=== PATIENT | male | born 1955 | race Two or more races ===

== ENCOUNTER 2021-03-05 09:57 | Inpatient (IN) | payer SELFPAY ==
[~2021-03-05] VITALS: Ht 165.1 cm; Wt 71.0 kg
[2021-03-05] MEDS ORDERED: DEXAMETHASONE SOD PHOS 20 MG/5 ML VIAL. IV ONE (10:45)
[2021-03-05] MEDS ORDERED: ALBUTEROL SULFATE 2.5 MG/3 ML NEBU. NEB ONE ×2 (10:45→13:45)
--- NOTE | 2021-03-05 10:54 | PHYS DOC ---
Past Medical History Past Surgical History: Other Additional Past Surgical Histo: heart General Adult EDM: Chief Complaint: OTHER COMPLAINTS HPI: HPI: Patient is a 66 year old male who presents with was outside burning some garbage about 3 weeks ago and feeling very short of air with some chest pain. 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 Unsure if medications he takes. He does take insulin for his diabetes. States he does not think that he takes a blood thinner. Son is in the room interpreting for the father but he is also not a good historian. He is not vaccinated for Covid. Patient states he does take medication every day but is unsure what it is for. He states he did have a heart surgery in the past. Rates his discomfort 7 out of 10. Denies fever, headache, cough, dizziness, syncope, abdominal pain, nausea, vomiting, diarrhea, vision change, focal weakness, numbness or tingling. Review of Systems: Review of Systems: Constitutional: Denies fever or chills. [] Eyes: Denies change in visual acuity. [] HENT: Denies nasal congestion or sore throat. [] Respiratory: Denies cough or +shortness of breath. [] Cardiovascular: +chest pain or denies edema. [] GI: Denies abdominal pain, nausea, vomiting, bloody stools or diarrhea. [] : Denies dysuria. [] Musculoskeletal: Denies back pain or joint pain. [] Integument: Denies rash. [] Neurologic: Denies headache, focal weakness or sensory changes. [] Endocrine: Denies polyuria or polydipsia. [] Lymphatic: Denies swollen glands. [] Psychiatric: Denies depression or anxiety. [] Heart Score: C/O Chest Pain: Yes HEART Score for Chest Pain: HEART Score for Chest Pain Response (Comments) Value History Slighlty/Non-Suspicious 0 ECG Nonspecific Repolarizatio 1 Age >45 - < 65 1 Risk Factors >3 Risk Factors or Hx CAD 2 Troponin < Normal Limit 0 Total 4 Risk Factors: Risk Factors: DM, Current or recent (<one month) smoker, HTN, HLP, family history of CAD, obesity. Risk Scores: Score 0 - 3: 2.5% MACE over next 6 weeks - Discharge Home Score 4 - 6: 20.3% MACE over next 6 weeks - Admit for Clinical Observation Score 7 - 10: 72.7% MACE over next 6 weeks - Early Invasive Strategies Current Medications: Current Medications Medications (Trade) Dose Ordered Sig/Laura Start Time Stop Time Status Last Admin Dose Admin Albuterol Sulfate (Ventolin Neb Soln) 2.5 mg 1X ONCE 03/05/21 10:45 03/05/21 10:46 Dexamethasone Sodium Phosphate (Decadron) 10 mg 1X ONCE 03/05/21 10:45 03/05/21 10:46 Allergies: Allergies: Allergies Coded Allergies Type Severity Reaction Last Updated Verified No Known Drug Allergies 03/05/21 No Physical Exam: PE: Constitutional: Well developed, well nourished, no acute distress, non-toxic appearance. [] HENT: Normocephalic, atraumatic, bilateral external ears normal, oropharynx moist, no oral exudates, nose normal. [] Eyes: PERRLA, EOMI, conjunctiva normal, no discharge. [] Neck: Normal range of motion, no tenderness, supple, no stridor. [] Cardiovascular:Heart rate regular rhythm, no murmur [] Lungs & Thorax: Bilateral upper breath sounds clear and lower diminished to auscultation [] Abdomen: Bowel sounds normal, soft, no tenderness, no masses, no pulsatile masses. [] Skin: Warm, dry, no erythema, no rash. [] Back: No tenderness, no CVA tenderness. [] Extremities: No tenderness, no cyanosis, no clubbing, ROM intact, no edema. [] Neurologic: Alert and oriented X 3, normal motor function, normal sensory function, no focal deficits noted. [] Psychologic: Affect normal, judgement normal, mood normal. [] Current Patient Data: Vital Signs: Vital Signs Date Time Temp Pulse Resp B/P (MAP) Pulse Ox O2 Delivery O2 Flow Rate FiO2 03/05/21 10:10 97.6 88 20 114/71 98 Room Air 97.6 EKG: EK and read by Dr. Haque sinus rhythm with ventricular premature complexes and no STEMI Radiology/Procedures: Radiology/Procedures: [] Impression: [facility] [address] [place] [address] IMAGING REPORT Signed PATIENT: MARIAN LEDESMAIAGO ACCOUNT: [id number] : 1955 LOCATION: ER AGE: 66 SEX: M EXAM STATUS: PRE ER ORD. PHYSICIAN: MINDY LUIS APRN REASON: CHEST PAIN, SOA PROCEDURE: PORTABLE CHEST 1V EXAM: Chest, single view. HISTORY: Pain. Shortness of breath. COMPARISON: None. FINDINGS: A frontal view of the chest obtained. There is diffuse interstitial infiltrate. There are small pleural effusions. There is cardia megaly. There is evidence of prior median sternotomy and coronary artery bypass grafting. There is no pneumothorax IMPRESSION: 1. Diffuse interstitial infiltrate and small pleural effusions. 2. Cardiomegaly. Electronically signed by: Gemma Wright MD (03/05/2021 11:06 AM) [id number] DICTATED and SIGNED BY: GEMMA WRIGHT MD DATE: 03/05/21 [id number] [facility] [address] [place], [place] [id number] IMAGING REPORT Signed PATIENT: DUANE LEDESMA ACCOUNT: [id number] : 1955 LOCATION: ER AGE: 66 SEX: M EXAM STATUS: PRE ER ORD. PHYSICIAN: MINDY LUIS APRN REASON: abd pain, nausea, vomiting PROCEDURE: CT ABD PELV W/ IV CONTRST ONLY CT STUDY OF THE ABDOMEN AND PELVIS WITH CONTRAST Clinical indications: Abdominal pain. Nausea and vomiting. TECHNIQUE: After IV infusion of 75 cc of Omnipaque 300, helical CT scanning of the abdomen and pelvis was performed. GI contrast was not administered. This may decrease the sensitivity to detect GI tract pathology. PQRS COMPLIANCE STATEMENT One or more of the following individualized dose reduction techniques were utilized for this study: 1. Automated exposure control 2. Adjustment of the mA and/or kV according to patient size 3. Use of iterative reconstruction technique COMPARISON: None available. FINDINGS: The liver and spleen and pancreas are normal. Multiple radiopaque gallstones are seen within the gallbladder. No extra hepatic biliary ductal dilatation is seen. No adrenal mass is seen. Both kidneys are normal without hydronephrosis or hydroureter. No urinary tract stone is evident. Urinary bladder wall is smooth. There is mild enlargement of the prostate gland which indents the floor of the urinary bladder. Prostate gland measures 6 cm transversely. No focal aneurysmal dilatation of the abdominal aorta is seen. C alcified plaque of the abdominal aorta and the origin of the celiac artery and origin/proximal aspect of the superior mesenteric artery and the origin/proximal aspect of both main renal arteries is seen. At least a 50 percent stenosis of the left main renal artery is seen. Inferior mesenteric artery is visualized and enhances. No enlarged abdominal or pelvic lymphadenopathy is apparent. The terminal ileum and appendix are normal. No obstructive bowel pattern is evident. No bowel wall thickening is seen. No free air or free fluid or mesenteric edema is evident. Moderate-sized bilateral pleural effusions are seen with associated compressive atelectasis of both posterior lower lobes. Cardiomegaly is evident. IMPRESSION: No acute abnormality of the abdomen or pelvis. Moderate-sized bilateral pleural effusions and cardiomegaly. 50 percent stenosis of the left main renal artery. Enlargement of the prostate gland. Cholelithiasis. Electronically signed by: Bisi Swift MD (03/05/2021 12:19 PM) [id number] DICTATED and SIGNED BY: BISI SWIFT MD DATE: 03/05/21 [id number] 0 Course & Med Decision Making: Course & Med Decision Making Pertinent Labs and Imaging studies reviewed. (See chart for details) COVID-19 CRITERIA: The patient was evaluated during the global COVID-19 pandemic, and that diagnosis was suspected/considered upon their initial presentation. Their evaluation, treatment and testing was consistent with current guidelines for patients who present with complaints or symptoms that may be related to COVID-19. See HPI. Alert and oriented x4. Ambulatory steady gait. Speaks in full clear sentences. Skin pink warm and dry. Lungs are clear in upper lobes and dimi nished in lower lobes. Skin pink warm and dry. Chest x-ray shows pneumonia and moderate pleural effusions. Patient states the breathing treatment did help. He was also given dexamethasone. Patient is still wheezing and his respiratory rate is around 22-24. Vital signs remained stable. Rapid Covid is negative. Patient is admitted to Dr Ibarra. [] Tatyana Disclaimer: Tatyana Disclaimer: This electronic medical record was generated, in whole or in part, using a voice recognition dictation system. COVID-19 Patient Risks: Age 65 or older: No Sign of co-morbidity: Yes Exp to person + for COVID: No Exp to PUI: No Travel from affected area: No Lower respiratory symptoms: Yes Fever: No Other: Yes (chest pain) PPE Use: Full PPE with N95 mask or PAPR: Yes Departure Departure Impression: Primary Impression: Cholelithiasis Qualified Codes: K80.20 - Calculus of gallbladder without cholecystitis without obstruction Additional Impressions: Pleural effusion Chest pain Qualified Codes: R07.9 - Chest pain, unspecified Disposition: ADMITTED INPATIENT Admitting Physician: ANGELIA Condition: STABLE [facility] ANA[facility]ST Mar 05, 2021 10:54
[2021-03-05] MEDS ORDERED: ASPIRIN 325 MG TABLET PO ONE (11:00)
--- NOTE | 2021-03-05 11:09 | RAD ---
EXAM: Chest, single view. HISTORY: Pain. Shortness of breath. COMPARISON: None. FINDINGS: A frontal view of the chest obtained. There is diffuse interstitial infiltrate. There are s mall pleural effusions. There is cardia megaly. There is evidence of prior median sternotomy and lani nary artery bypass grafting. There is no pneumothorax IMPRESSION: 1. Diffuse interstitial infiltrate and small pleural effusions. 2. Cardiomegaly. Electronically signed by: Gemma Sanchez MD (03/05/2021 11:06 AM) [id number]
[2021-03-05 11:21] LABS: BASO # 0.1 x10^3/uL (0.0-0.2); BASO % 1 % (0-3); EOS # 0.3 x10^3/uL (0.0-0.7); EOS % 4 % (0-3); HEMOGLOBIN 14.6 g/dL (13.0-17.5); LYMPH # 1.8 x10^3/uL (1.0-4.8); LYMPH % 23 % (24-48); MEAN CORPUSCULAR HEMOGLOBIN 30 pg (25-35); MEAN CORPUSCULAR HGB CONC 33 g/dL (31-37); MEAN CORPUSCULAR VOLUME 90 fL (79-100); MONO # 0.6 x10^3/uL (0.0-1.1); MONO % 8 % (0-9); NEUT # 4.9 x10^3/uL (1.8-7.7); NEUT % 64 % (31-73); PLATELET COUNT 229 x10^3/uL (140-400); RED BLOOD COUNT 4.87 x10^6/uL (4.30-5.70); RED CELL DISTRIBUTION WIDTH 16.6 % (11.5-14.5); WHITE BLOOD COUNT 7.6 x10^3/uL (4.0-11.0)
[2021-03-05 11:30] LABS: CALCIUM 9.2 mg/dL (8.5-10.1); CREATININE 1.1 mg/dL (0.7-1.3); GFR 67.4; POTASSIUM 4.7 mmol/L (3.5-5.1)
[2021-03-05 11:37] LABS: ALBUMIN 3.7 g/dL (3.4-5.0); ALBUMIN/GLOBULIN RATIO 0.9 (1.0-1.7); TOTAL BILIRUBIN 0.6 mg/dL (0.2-1.0); TOTAL PROTEIN 7.6 g/dL (6.4-8.2)
[2021-03-05] MEDS ORDERED: IOHEXOL 300 MG/ML 100ML VIAL. IV ONE (12:00)
[2021-03-05] MEDS ORDERED: IV NORMAL SALINE 500ML BAG 500 ML IV ONE (12:00)
[2021-03-05] MEDS ORDERED: PIPERACILLIN/TAZOBACTAM 3.375 GM in IV NORMAL SALINE 50ML 50 ML IV ONE (12:00)
[2021-03-05] MEDS ORDERED: CONTRAST GIVEN. MC PRN (12:00)
--- NOTE | 2021-03-05 12:22 | RAD ---
CT STUDY OF THE ABDOMEN AND PELVIS WITH CONTRAST Clinical indications: Abdominal pain. Nausea and vomiting. TECHNIQUE: After IV infusion of 75 cc of Omnipaque 300, helical CT scanning of the abdomen and pelvis was performed. GI contrast was not administered. This may decrease the sensitivity to detect GI trac t pathology. PQRS COMPLIANCE STATEMENT One or more of the following individualized dose reduction techniques were utilized for this study: 1. Automated exposure control 2. Adjustment of the mA and/or kV according to patient size 3. Use of iterative reconstruction technique COMPARISON: None available. FINDINGS: The liver and spleen and pancreas are normal. Multiple radiopaque gallstones are seen withi n the gallbladder. No extra hepatic biliary ductal dilatation is seen. No adrenal mass is seen. Both kidneys are normal without hydronephrosis or hydroureter. No urinary tract stone is evident. Urinary bladder wall is smooth. There is mild enlargement of the prostate gland which indents the floor of th e urinary bladder. Prostate gland measures 6 cm transversely. No focal aneurysmal dilatation of the a bdominal aorta is seen. Calcified plaque of the abdominal aorta and the origin of the celiac artery a nd origin/proximal aspect of the superior mesenteric artery and the origin/proximal aspect of both ma in renal arteries is seen. At least a 50 percent stenosis of the left main renal artery is seen. Infe rior mesenteric artery is visualized and enhances. No enlarged abdominal or pelvic lymphadenopathy is apparent. The terminal ileum and appendix are normal. No obstructive bowel pattern is evident. No [place] wall thickening is seen. No free air or free fluid or mesenteric edema is evident. Moderate-sized bilateral pleural effusions are seen with associated compressive atelectasis of both posterior lower lobes. Cardiomegaly is evident. IMPRESSION: No acute abnormality of the abdomen or pelvis. Moderate-sized bilateral pleural effusions and cardiomegaly. 50 percent stenosis of the left main renal artery. Enlargement of the prostate gland. Cholelithiasis. Electronically signed by: Cameron Swift MD (03/05/2021 12:19 PM) [id number]
--- NOTE | 2021-03-05 13:15 | RAD ---
INDICATION : Reason: GALL STONES / Spl. Instructions: / History: COMPARISON: March 05, 2021 CT TECHNIQUE: Multiple ultrasound images obtained through the abdomen in grayscale and color. FINDINGS: Pancreas: Largely obscured by overlying structures Liver: Echotexture within normal limits in visualized portions of liver. Gallbladder: Gallstones are visualized. IVC: Partially distended at level of liver. Common Bile Duct: Not dilated. Right Kidney: No hydronephrosis. 6 mm cyst Partial visualization of right-sided pleural effusion IMPRESSION: * Gallstones are visualized with gallbladder wall near upper limits of normal in thickness. Electronically signed by: Bala Aleman MD (03/05/2021 1:12 PM) [id number]
--- NOTE | 2021-03-05 13:59 | PDOC1 ---
History and Physical Date of Admission Date of Admission DATE: 03/05/21 TIME: 13:56 Identification/Chief Complaint Chief Complaint soa, cough x 3 weeks now worse History of Present Illness History of Present Illness 66 year old male who presented to ER with was outside burning some garbage about 3 weeks ago and feeling very short of air with some chest pain. Patient is Korean-speaking and using sign language interpreter states he has hypertension, diabetes, [place], high cholesterol. does take insulin for his diabetes. Son is interpreting for the father but he is also not a good historian. not vaccinated for Covid. troponin neg x 2 emperic iv zosyn started in ER Past Medical History Past Medical History hypertension, [facility] diabetes, [place], high cholesterl FHX HTN Cardiovascular: CAD, HTN, [place], Hyperlipidemia Pulmonary: COPD Heme/Onc: No pertinent hx Psych: Anxiety Infectious disease: No pertinent hx Endocrine: Diabetes Family History Family History: Hypertension Social History Smoke: Quit ALCOHOL: rare Drugs: None Current Problem List Problem List Problems Medical Problems: (1) Chest pain Status: Acute (2) Cholelithiasis Status: Acute (3) Pleural effusion Status: Acute Current Medications Current Medications Current Medications Dexamethasone Sodium Phosphate (Decadron) 10 mg 1X ONCE IV Last administered on 03/05/21at 11:31; Start 03/05/21 at 10:45; Stop 03/05/21 at 10:46; Status DC Albuterol Sulfate (Ventolin Neb Soln) 2.5 mg 1X ONCE NEB Last administered on 03/05/21at 11:30; Start 03/05/21 at 10:45; Stop 03/05/21 at 10:46; Status DC Aspirin (Annetta Aspirin) 325 mg 1X ONCE PO Last administered on 03/05/21at 11:30; Start 03/05/21 at 11:00; Stop 03/05/21 at 11:01; Status DC Piperacillin Sod/ Tazobactam Sod 3.375 gm/Sodium Chloride 50 ml @ 100 mls/hr 1X ONCE IV Last administered on 03/05/21at 12:38; Start 03/05/21 at 12:00; Stop 03/05/21 at 12:29; Status DC Sodium Chloride 500 ml @ 500 mls/hr 1X ONCE IV Last administered on 03/05/21at 12:38; Start 03/05/21 at 12:00; Stop 03/05/21 at 12:59; Status DC Iohexol (Omnipaque 300 Mg/ml) 75 ml 1X ONCE IV Last administered on 03/05/21at 12:03; Start 03/05/21 at 12:00; Stop 03/05/21 at 12:01; Status DC Info (CONTRAST GIVEN -- Rx MONITORING) 1 each PRN DAILY PRN MC SEE COMMENTS; Start 03/05/21 at 12:00; Stop 03/07/21 at 11:59 Albuterol Sulfate (Ventolin Neb Soln) 2.5 mg 1X ONCE NEB ; Start 03/05/21 at 13:45; Stop 03/05/21 at 13:46; Status DC Allergies Allergies: Coded Allergies: No Known Drug Allergies (Unverified , 03/05/21) ROS Review of System 14 pt ros otherwise neg General: YES: Fatigue PSYCHOLOGICAL ROS: No: Anxiety, Behavioral Disorder, Concentration difficultie, Decreased libido, Depression, Disorientation, Hallucinations, Hostility, Irritablity, Memory difficulties, Mood Swings, Obsessive thoughts, Physical abuse, Sexual abuse, Sleep disturbances, Suicidal ideation, Other Eyes: No Blurry vision, No Decreased vision, No Double vision, No Dry eyes, No Excessive tearing, No Eye Pain, No Itchy Eyes, No Loss of vision, No Photophobia, No Scotomata, No Uses contacts, No Uses glasses, No Other HEENT: No: Heacaches, Visual Changes, Hearing change, Nasal congestion, Nasal discharge, Oral lesions, Sinus pain, Sore Throat, Epistaxis, Sneezing, Snoring, Tinnitus, Vertigo, Vocal changes, Other ALLERGY AND IMMUNOLOGY: No: Hives, Insect Bite Sensitivity, Itchy/Watery Eyes, Nasal Congestion, Post Nasal Drip, Seasonal Allergies, Other Hematological and Lymphatic: No: Bleeding Problems, Blood Clots, Blood Transfusions, Brusing, Night Sweats, Pallor, Swollen Lymph Nodes, Other ENDOCRINE: No: Breast Changes, Galactorrhea, Hair Pattern Changes, Hot Flashes, Malaise/lethargy, Mood Swings, Palpitations, Polydipsia/polyuria, Skin Changes, Temperature Intolerance, Unexpected Weight Changes, Other Breast: No New/Changing Breast Lumps, No Nipple changes, No Nipple discharge, No Other Respiratory: YES: Cough, Shortness of breath, SOB with excertion, Wheezing Cardiovascular: No Chest Pain, No Palpitations, No Orthopnea, No Paroxysmal Noc. Dyspnea, No Edema, No Lt Headedness, No Other Gastrointestinal: No Nausea, No Vomiting, No Abdominal Pain, No Diarrhea, No Constipation, No Melena, No Hematochezia, No Other Genitourinary: No Dysuria, No Frequency, No Incontinence, No Hematuria, No Retention, No Discharge, No Urgency, No Pain, No Flank Pain, No Other, No , No , No , No , No , No , No Musculoskeletal: No Gait Disturbance, No Joint Pain, No Joint Stiffness, No Joint Swelling, No Muscle Pain, No Muscular Weakness, No Pain In:, No Swelling In:, No Other Neurological: No Behavorial Changes, No Bowel/Bladder ControlChng, No Confusion, No Dizziness, No Gait Disturbance, No Headaches, No Impaired Coord/balance, No Memory Loss, No Numbness/Tingling, No Seizures, No Speech Problems, No Tremors, No Visual Changes, No Weakness, No Other Skin: No Dry Skin, No Eczema, No Hair Changes, No Lumps, No Mole Changes, No Mottling, No Nail Changes, No Pruritus, No Rash, No Skin Lesion Changes, No Other, No Acne Physical Exam Physical Exam Constitutional: Well developed, well nourished, no acute distress, non-toxic appearance. [] HENT: Normocephalic, atraumatic, bilateral external ears normal, oropharynx moist, no oral exudates, nose normal. [] Eyes: PERRLA, EOMI, conjunctiva normal, no discharge. [] Neck: Normal range of motion, no tenderness, supple, no stridor. [] Cardiovascular:Heart rate regular rhythm, no murmur [] Lungs & Thorax: Bilateral upper breath sounds clear and lower diminished to auscultation [] Abdomen: Bowel sounds normal, soft, no tenderness, no masses, no pulsatile masses. [] Skin: Warm, dry, no erythema, no rash. [] Back: No tenderness, no CVA tenderness. [] Extremities: No tenderness, no cyanosis, no clubbing, ROM intact, no edema. [] Neurologic: Alert and oriented X 3, normal motor function, normal sensory function, no focal deficits noted. [] Psychologic: Affect normal, judgment normal, mood normal. General: Alert, Oriented X3, Cooperative HEENT: Atraumatic, EOMI, Mucous membr. moist/pink Heart: RRR, no jug vein distention Breasts: Not examined Abdomen: Normal bowel sounds, Soft, No tenderness Rectal Exam: not examined PELVIC: Examination not indicated Extremities: No clubbing, No cyanosis Neuro: Normal speech, Cranial nerves 3-12 NL Psych/Mental Status: Mental status NL, Mood NL Vitals Vitals Vital Signs Date Time Temp Pulse Resp B/P (MAP) Pulse Ox O2 Delivery O2 Flow Rate FiO2 03/05/21 11:37 98 Room Air 03/05/21 10:10 97.6 88 20 114/71 97.6 Labs Labs Laboratory Tests Test 03/05/21 10:55 03/05/21 11:05 03/05/21 12:42 SARS-CoV-2 Antigen (Rapid) Negative (NEGATIVE) White Blood Count 7.6 x10^3/uL (4.0-11.0) Red Blood Count 4.87 x10^6/uL (4.30-5.70) Hemoglobin 14.6 g/dL (13.0-17.5) Hematocrit 44.0 % (39.0-53.0) Mean Corpuscular Volume 90 fL (79-100) Mean Corpuscular Hemoglobin 30 pg (25-35) Mean Corpuscular Hemoglobin Concent 33 g/dL (31-37) Red Cell Distribution Width 16.6 % (11.5-14.5) Platelet Count 229 x10^3/uL (140-400) Neutrophils (%) (Auto) 64 % (31-73) Lymphocytes (%) (Auto) 23 % (24-48) Monocytes (%) (Auto) 8 % (0-9) Eosinophils (%) (Auto) 4 % (0-3) Basophils (%) (Auto) 1 % (0-3) Neutrophils # (Auto) 4.9 x10^3/uL (1.8-7.7) Lymphocytes # (Auto) 1.8 x10^3/uL (1.0-4.8) Monocytes # (Auto) 0.6 x10^3/uL (0.0-1.1) Eosinophils # (Auto) 0.3 x10^3/uL (0.0-0.7) Basophils # (Auto) 0.1 x10^3/uL (0.0-0.2) Sodium Level 143 mmol/L (136-145) Potassium Level 4.7 mmol/L (3.5-5.1) Chloride Level 107 mmol/L (98-107) Carbon Dioxide Level 28 mmol/L (21-32) Anion Gap 8 (6-14) Blood Urea Nitrogen 21 mg/dL (8-26) Creatinine 1.1 mg/dL (0.7-1.3) Estimated GFR (Cockcroft-Gault) 67.4 BUN/Creatinine Ratio 19 (6-20) Glucose Level 101 mg/dL (70-99) Calcium Level 9.2 mg/dL (8.5-10.1) Magnesium Level 2.0 mg/dL (1.8-2.4) Total Bilirubin 0.6 mg/dL (0.2-1.0) Aspartate Amino Transf (AST/SGOT) 17 U/L (15-37) Alanine Aminotransferase (ALT/SGPT) 36 U/L (16-63) Alkaline Phosphatase 79 U/L (46-116) Troponin I Quantitative < 0.017 ng/mL (0.000-0.055) MJ-Kgi-C-Type Natriuretic Peptide 3519 pg/mL (0-124) Total Protein 7.6 g/dL (6.4-8.2) Albumin 3.7 g/dL (3.4-5.0) Albumin/Globulin Ratio 0.9 (1.0-1.7) Lipase 1551 U/L (73-393) Lactic Acid Level 1.6 mmol/L (0.4-2.0) Laboratory Tests Test 03/05/21 10:55 03/05/21 11:05 03/05/21 12:42 SARS-CoV-2 Antigen (Rapid) Negative (NEGATIVE) White Blood Count 7.6 x10^3/uL (4.0-11.0) Red Blood Count 4.87 x10^6/uL (4.30-5.70) Hemoglobin 14.6 g/dL (13.0-17.5) Hematocrit 44.0 % (39.0-53.0) Mean Corpuscular Volume 90 fL (79-100) Mean Corpuscular Hemoglobin 30 pg (25-35) Mean Corpuscular Hemoglobin Concent 33 g/dL (31-37) Red Cell Distribution Width 16.6 % (11.5-14.5) Platelet Count 229 x10^3/uL (140-400) Neutrophils (%) (Auto) 64 % (31-73) Lymphocytes (%) (Auto) 23 % (24-48) Monocytes (%) (Auto) 8 % (0-9) Eosinophils (%) (Auto) 4 % (0-3) Basophils (%) (Auto) 1 % (0-3) Neutrophils # (Auto) 4.9 x10^3/uL (1.8-7.7) Lymphocytes # (Auto) 1.8 x10^3/uL (1.0-4.8) Monocytes # (Auto) 0.6 x10^3/uL (0.0-1.1) Eosinophils # (Auto) 0.3 x10^3/uL (0.0-0.7) Basophils # (Auto) 0.1 x10^3/uL (0.0-0.2) Sodium Level 143 mmol/L (136-145) Potassium Level 4.7 mmol/L (3.5-5.1) Chloride Level 107 mmol/L (98-107) Carbon Dioxide Level 28 mmol/L (21-32) Anion Gap 8 (6-14) Blood Urea Nitrogen 21 mg/dL (8-26) Creatinine 1.1 mg/dL (0.7-1.3) Estimated GFR (Cockcroft-Gault) 67.4 BUN/Creatinine Ratio 19 (6-20) Glucose Level 101 mg/dL (70-99) Calcium Level 9.2 mg/dL (8.5-10.1) Magnesium Level 2.0 mg/dL (1.8-2.4) Total Bilirubin 0.6 mg/dL (0.2-1.0) Aspartate Amino Transf (AST/SGOT) 17 U/L (15-37) Alanine Aminotransferase (ALT/SGPT) 36 U/L (16-63) Alkaline Phosphatase 79 U/L (46-116) Troponin I Quantitative < 0.017 ng/mL (0.000-0.055) SQ-Baj-M-Type Natriuretic Peptide 3519 pg/mL (0-124) Total Protein 7.6 g/dL (6.4-8.2) Albumin 3.7 g/dL (3.4-5.0) Albumin/Globulin Ratio 0.9 (1.0-1.7) Lipase 1551 U/L (73-393) Lactic Acid Level 1.6 mmol/L (0.4-2.0) Images Images EXAM: Chest, single view. HISTORY: Pain. Shortness of breath. COMPARISON: None. FINDINGS: A frontal view of the chest obtained. There is diffuse interstitial infiltrate. There are small pleural effusions. There is cardia megaly. There is evidence of prior median sternotomy and coronary artery bypass grafting. There i s no pneumothorax IMPRESSION: 1. Diffuse interstitial infiltrate and small pleural effusions. 2. Cardiomegaly. Electronically signed by: Gemma Wright MD (03/05/2021 11:06 AM) [id number] DICTATED and SIGNED BY: GEMMA WRIGHT MD DATE: 03/05/21 [id number] INDICATION : Reason: GALL STONES / Spl. Instructions: / History: COMPARISON: March 05, 2021 CT TECHNIQUE: Multiple ultrasound images obtained through the abdomen in grayscale and color. FINDINGS: Pancreas: Largely obscured by overlying structures Liver: Echotexture within normal limits in visualized portions of liver. Gallbladder: Gallstones are visualized. IVC: Partially distended at level of liver. Common Bile Duct: Not dilated. Right Kidney: No hydronephrosis. 6 mm cyst Partial visualization of right-sided pleural effusion IMPRESSION: * Gallstones are visualized with gallbladder wall near upper limits of normal in thickness. Electronically signed by: Bala Aleman MD (03/05/2021 1:12 PM) [id number] PATIENT: DUANE LEDESMA ACCOUNT: [id number] : 1955 LOCATION: ER AGE: 66 SEX: M EXAM STATUS: PRE ER ORD. PHYSICIAN: MINDY LUIS APRN REASON: abd pain, nausea, vomiting PROCEDURE: CT ABD PELV W/ IV CONTRST ONLY CT STUDY OF THE ABDOMEN AND PELVIS WITH CONTRAST Clinical indications: Abdominal pain. Nausea and vomiting. TECHNIQUE: After IV infusion of 75 cc of Omnipaque 300, helical CT scanning of the abdomen and pelvis was performed. GI contrast was not administered. This may decrease the sensitivity to detect GI tract pathology. PQRS COMPLIANCE STATEMENT One or more of the following individualized dose reduction techniques were utilized for this study: 1. Automated exposure control 2. Adjustment of the mA and/or kV according to patient size 3. Use of iterative reconstruction technique COMPARISON: None available. FINDINGS: The liver and spleen and pancreas are normal. Multiple radiopaque gallstones are seen within the gallbladder. No extra hepatic biliary ductal dilatation is seen. No adrenal mass is seen. Both kidneys are normal without hydronephrosis or hydroureter. No urinary tract stone is evident. Urinary bladder wall is smooth. There is mild enlargement of the prostate gland which indents the floor of the urinary bladder. Prostate gland measures 6 cm transversely. No focal aneurysmal dilatation of the abdominal aorta is seen. Calcified plaque of the abdominal aorta and the origin of the celiac artery and origin/proximal aspect of the superior mesenteric artery and the origin/proximal aspect of both main renal arteries is seen. At least a 50 percent stenosis of the left main renal artery is seen. Inferior mesenteric artery is visualized and enhances. No enlarged abdominal or pelvic lymphadenopathy is apparent. The terminal ileum and appendix are normal. No obstructive bowel pattern is evident. No bowel wall thickening is seen. No free air or free fluid or mesenteric edema is evident. Moderate-sized bilateral pleural effusions are seen with associated compressive atelectasis of both posterior lower lobes. Cardiomegaly is evident. IMPRESSION: No acute abnormality of the abdomen or pelvis. Moderate-sized bilateral pleural effusions and cardiomegaly. 50 percent stenosis of the left main renal artery. Enlargement of the prostate gland. Cholelithiasis. Electronically signed by: Bisi Swift MD (03/05/2021 12:19 PM) [id number] DICTATED and SIGNED BY: BISI SWIFT MD DATE: 03/05/21 [id number] VTE Prophylaxis Ordered VTE Prophylaxis Devices: Yes VTE Pharmacological Prophylaxi: Yes Assessment/Plan Assessment/Plan IMPRESSION: Acute hypoxic respiratory failure with respiratory distress Diffuse interstitial infiltrate and small pleural effusions. Cardiomegaly. Moderate-sized bilateral pleural effusions and cardiomegaly. 50 percent stenosis of the left main renal artery. Gallstones within gallbladder wall Chest pain Acute hypoxic resp failure Covid neg screen, pcr pending ADMITTED pulm consult icu bed BIPAP SUPPORT gi prophylaxis O2 SUPPORT pulmonary consult dvt prophylaxis gi prophylaxis 34 MIN CC TIME Justifications for Admission Other Justification ROBI STILL MD Mar 05, 2021 13:59
[2021-03-05] MEDS ORDERED: ONDANSETRON PF 4 MG/2 ML VIAL. IV PRN (14:15)
[2021-03-05] MEDS ORDERED: DOCUSATE SODIUM 100 MG CAPSULE. PO PRN (14:15)
[2021-03-05] MEDS ORDERED: SODIUM PHOSPHATES 19/7GM 133 ML ENEMA. PR PRN (14:15)
[2021-03-05] MEDS ORDERED: guaiFENesin ORAL 200 MG/10 ML LIQUID. PO PRN (14:15)
[2021-03-05] MEDS ORDERED: 0.9 % SODIUM CHLORIDE 10 ML DISP.SYRIN. IV PRN (14:15)
[2021-03-05] MEDS ORDERED: ACETAMINOPHEN 325 MG TABLET. PO PRN (14:15)
[2021-03-05 14:48] LABS: PROTHROMBIN TIME PATIENT 14.3 SEC (11.7-14.0)
[2021-03-05 15:23] LABS: BASE EXCESS COOX -2 mmol/L (-3-3); HCO3 COOX 22 mmol/L (21-28); METHEMOGLOBIN 0.6 % (0.0-1.9); OXYHEMOGLOBIN 94.7 %; PCO2 COOX 39 mmHg (35-46); PO2 COOX 81 mmHg (65-108); SAT O2 COOX 95 % (92-99)
--- NOTE | 2021-03-05 15:55 | EKG ---
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
[2021-03-05] MEDS: IPRATRPIUM/ALBUTEROL 0.5/2.5MG 3 ML NEBU. NEB SCH ×2 (16:00→20:00)
[2021-03-05] MEDS ORDERED: ENOXAPARIN 40 MG/0.4 ML SYRINGE. SQ SCH (16:00)
[2021-03-05 17:37] LABS: BILIRUBIN,URINE NEGATIVE (NEG); CLARITY,URINE CLEAR; COLOR,URINE YELLOW; NITRITE,URINE NEGATIVE (NEG); PROTEIN,URINE 100 mg/dL (NEG-TRACE); UROBILINOGEN,URINE 0.2 mg/dL (0.2 mg/dL)
[2021-03-05 17:42] LABS: BARBITURATES NEG (NEG); BENZODIAZEPINES NEG (NEG); CANNABINOIDS NEG (NEG); COCAINE NEG (NEG); METHADONE NEG (NEG); OPIATES NEG (NEG); PHENCYCLIDINE NEG (NEG)
[2021-03-05 17:47] LABS: BACTERIA,URINE 0 /HPF (0-FEW); RBC,URINE OCC /HPF (0-2); WBC,URINE OCC /HPF (0-4)
[2021-03-05 17:48] LABS: AMPHETAMINE/METHAMPHETAMINE NEG (NEG)
[2021-03-05 18:40] VITALS: BP 127/68
[2021-03-05] MEDS ORDERED: PIP/TAZO PER PHARMACY MC PRN (20:45)
[2021-03-05] MEDS: PIPERACILLIN/TAZOBACTAM 3.375 GM in IV NORMAL SALINE 50ML 50 ML IV SCH (21:30)
--- NOTE | 2021-03-05 23:00 | NUR ---
Admit prior to shift change from ER. Alert. Pleasant. Cooperative. Fatigued. Short of Air. Covid negative. [place] Speaking. Family has gone home. Using blue phone for communication. Can not tell me home medications or pharmacy he uses. Orientated to unit and call light. Reviewed POC to include Tele monitor and Zosyn for Dx Pneumonia. Nods head yes in understanding. Resting in bed. Call light at hand. Bed alarm on.
[2021-03-05 23:05] VITALS: BP 84/51
[2021-03-06] MEDS: PIPERACILLIN/TAZOBACTAM 3.375 GM in IV NORMAL SALINE 50ML 50 ML IV SCH ×3 (01:48→11:59)
[2021-03-06 03:15] VITALS: BP 83/52
[2021-03-06] MEDS: IPRATRPIUM/ALBUTEROL 0.5/2.5MG 3 ML NEBU. NEB SCH ×4 (04:00→12:00)
[2021-03-06 07:00] VITALS: BP 124/60
[2021-03-06] MEDS ORDERED: AMOX1TAB61 PO (10:29)
--- NOTE | 2021-03-06 10:31 | PDOC3 ---
Discharge Summary Visit Information Date of Admission: Mar 05, 2021 Date of Discharge: Mar 06, 2021 Final Diagnosis chest pain, abd pain cholelithiasis, asthma Problems Medical Problems: (1) Chest pain Status: Acute (2) Cholelithiasis Status: Acute (3) Pleural effusion Status: Acute Brief Hospital Course Allergies Allergies Coded Allergies Type Severity Reaction Last Updated Verified No Known Drug Allergies 03/05/21 No Vital Signs Vital Signs Date Time Temp Pulse Resp B/P (MAP) Pulse Ox O2 Delivery O2 Flow Rate FiO2 03/06/21 07:00 97.6 95 20 124/60 (81) 94 Nasal Cannula 2.0 97.6 Lab Results Laboratory Tests Test 03/05/21 10:55 03/05/21 11:05 03/05/21 12:42 03/05/21 14:30 SARS-CoV-2 RNA (GLENN) Negative (Negative) SARS-CoV-2 Antigen (Rapid) Negative (NEGATIVE) White Blood Count 7.6 x10^3/uL (4.0-11.0) Red Blood Count 4.87 x10^6/uL (4.30-5.70) Hemoglobin 14.6 g/dL (13.0-17.5) Hematocrit 44.0 % (39.0-53.0) Mean Corpuscular Volume 90 fL (79-100) Mean Corpuscular Hemoglobin 30 pg (25-35) Mean Corpuscular Hemoglobin Concent 33 g/dL (31-37) Red Cell Distribution Width 16.6 % (11.5-14.5) Platelet Count 229 x10^3/uL (140-400) Neutrophils (%) (Auto) 64 % (31-73) Lymphocytes (%) (Auto) 23 % (24-48) Monocytes (%) (Auto) 8 % (0-9) Eosinophils (%) (Auto) 4 % (0-3) Basophils (%) (Auto) 1 % (0-3) Neutrophils # (Auto) 4.9 x10^3/uL (1.8-7.7) Lymphocytes # (Auto) 1.8 x10^3/uL (1.0-4.8) Monocytes # (Auto) 0.6 x10^3/uL (0.0-1.1) Eosinophils # (Auto) 0.3 x10^3/uL (0.0-0.7) Basophils # (Auto) 0.1 x10^3/uL (0.0-0.2) Sodium Level 143 mmol/L (136-145) Potassium Level 4.7 mmol/L (3.5-5.1) Chloride Level 107 mmol/L (98-107) Carbon Dioxide Level 28 mmol/L (21-32) Anion Gap 8 (6-14) Blood Urea Nitrogen 21 mg/dL (8-26) Creatinine 1.1 mg/dL (0.7-1.3) Estimated GFR (Cockcroft-Gault) 67.4 BUN/Creatinine Ratio 19 (6-20) Glucose Level 101 mg/dL (70-99) Calcium Level 9.2 mg/dL (8.5-10.1) Magnesium Level 2.0 mg/dL (1.8-2.4) Total Bilirubin 0.6 mg/dL (0.2-1.0) Aspartate Amino Transf (AST/SGOT) 17 U/L (15-37) Alanine Aminotransferase (ALT/SGPT) 36 U/L (16-63) Alkaline Phosphatase 79 U/L (46-116) Troponin I Quantitative < 0.017 ng/mL (0.000-0.055) < 0.017 ng/mL (0.000-0.055) FD-Fmi-M-Type Natriuretic Peptide 3519 pg/mL (0-124) Total Protein 7.6 g/dL (6.4-8.2) Albumin 3.7 g/dL (3.4-5.0) Albumin/Globulin Ratio 0.9 (1.0-1.7) Lipase 1551 U/L (73-393) Lactic Acid Level 1.6 mmol/L (0.4-2.0) Prothrombin Time 14.3 SEC (11.7-14.0) Prothromb Time International Ratio 1.1 (0.8-1.1) Activated Partial Thromboplast Time 32 SEC (24-38) Test 03/05/21 15:20 03/05/21 17:28 03/06/21 01:30 O2 Saturation 95 % (92-99) Arterial Blood pH 7.38 (7.35-7.45) Arterial Blood pCO2 at Patient Temp 39 mmHg (35-46) Arterial Blood pO2 at Patient Temp 81 mmHg (65-108) Arterial Blood HCO3 22 mmol/L (21-28) Arterial Blood Base Excess -2 mmol/L (-3-3) Oxyhemoglobin 94.7 % Methemoglobin 0.6 % (0.0-1.9) Carbon Monoxide, Quantitative 0.0 % (0.0-1.9) FiO2 Urine Collection Type Unknown Urine Color Yellow Urine Clarity Clear Urine pH 5.0 (<5.0-8.0) Urine Specific [place] >=1.030 (1.000-1.030) Urine Protein 100 mg/dL (NEG-TRACE) Urine Glucose (UA) >=1000 mg/dL (NEG) Urine Ketones (Stick) Negative mg/dL (NEG) Urine Blood Moderate (NEG) Urine Nitrite Negative (NEG) Urine Bilirubin Negative (NEG) Urine Urobilinogen Dipstick 0.2 mg/dL (0.2 mg/dL) Urine Leukocyte Esterase Negative (NEG) Urine RBC Occ /HPF (0-2) Urine WBC Occ /HPF (0-4) Urine Squamous Epithelial Cells Occ /LPF Urine Bacteria 0 /HPF (0-FEW) Urine Opiates Screen Neg (NEG) Urine Methadone Screen Neg (NEG) Urine Barbiturates Neg (NEG) Urine Phencyclidine Screen Neg (NEG) Urine Amphetamine/Methamphetamine Neg (NEG) Urine Benzodiazepines Screen Neg (NEG) Urine Cocaine Screen Neg (NEG) Urine Cannabinoids Screen Neg (NEG) Urine Ethyl Alcohol Neg (NEG) Troponin I Quantitative < 0.017 ng/mL (0.000-0.055) Laboratory Tests Test 03/05/21 10:55 03/05/21 11:05 03/05/21 12:42 03/05/21 14:30 SARS-CoV-2 RNA (GLENN) Negative (Negative) SARS-CoV-2 Antigen (Rapid) Negative (NEGATIVE) White Blood Count 7.6 x10^3/uL (4.0-11.0) Red Blood Count 4.87 x10^6/uL (4.30-5.70) Hemoglobin 14.6 g/dL (13.0-17.5) Hematocrit 44.0 % (39.0-53.0) Mean Corpuscular Volume 90 fL (79-100) Mean Corpuscular Hemoglobin 30 pg (25-35) Mean Corpuscular Hemoglobin Concent 33 g/dL (31-37) Red Cell Distribution Width 16.6 % (11.5-14.5) Platelet Count 229 x10^3/uL (140-400) Neutrophils (%) (Auto) 64 % (31-73) Lymphocytes (%) (Auto) 23 % (24-48) Monocytes (%) (Auto) 8 % (0-9) Eosinophils (%) (Auto) 4 % (0-3) Basophils (%) (Auto) 1 % (0-3) Neutrophils # (Auto) 4.9 x10^3/uL (1.8-7.7) Lymphocytes # (Auto) 1.8 x10^3/uL (1.0-4.8) Monocytes # (Auto) 0.6 x10^3/uL (0.0-1.1) Eosinophils # (Auto) 0.3 x10^3/uL (0.0-0.7) Basophils # (Auto) 0.1 x10^3/uL (0.0-0.2) Sodium Level 143 mmol/L (136-145) Potassium Level 4.7 mmol/L (3.5-5.1) Chloride Level 107 mmol/L (98-107) Carbon Dioxide Level 28 mmol/L (21-32) Anion Gap 8 (6-14) Blood Urea Nitrogen 21 mg/dL (8-26) Creatinine 1.1 mg/dL (0.7-1.3) Estimated GFR (Cockcroft-Gault) 67.4 BUN/Creatinine Ratio 19 (6-20) Glucose Level 101 mg/dL (70-99) Calcium Level 9.2 mg/dL (8.5-10.1) Magnesium Level 2.0 mg/dL (1.8-2.4) Total Bilirubin 0.6 mg/dL (0.2-1.0) Aspartate Amino Transf (AST/SGOT) 17 U/L (15-37) Alanine Aminotransferase (ALT/SGPT) 36 U/L (16-63) Alkaline Phosphatase 79 U/L (46-116) Troponin I Quantitative < 0.017 ng/mL (0.000-0.055) < 0.017 ng/mL (0.000-0.055) FT-Bqo-J-Type Natriuretic Peptide 3519 pg/mL (0-124) Total Protein 7.6 g/dL (6.4-8.2) Albumin 3.7 g/dL (3.4-5.0) Albumin/Globulin Ratio 0.9 (1.0-1.7) Lipase 1551 U/L (73-393) Lactic Acid Level 1.6 mmol/L (0.4-2.0) Prothrombin Time 14.3 SEC (11.7-14.0) Prothromb Time International Ratio 1.1 (0.8-1.1) Activated Partial Thromboplast Time 32 SEC (24-38) Test 03/05/21 15:20 03/05/21 17:28 03/06/21 01:30 O2 Saturation 95 % (92-99) Arterial Blood pH 7.38 (7.35-7.45) Arterial Blood pCO2 at Patient Temp 39 mmHg (35-46) Arterial Blood pO2 at Patient Temp 81 mmHg (65-108) Arterial Blood HCO3 22 mmol/L (21-28) Arterial Blood Base Excess -2 mmol/L (-3-3) Oxyhemoglobin 94.7 % Methemoglobin 0.6 % (0.0-1.9) Carbon Monoxide, Quantitative 0.0 % (0.0-1.9) FiO2 Urine Collection Type Unknown Urine Color Yellow Urine Clarity Clear Urine pH 5.0 (<5.0-8.0) Urine Specific [place] >=1.030 (1.000-1.030) Urine Protein 100 mg/dL (NEG-TRACE) Urine Glucose (UA) >=1000 mg/dL (NEG) Urine Ketones (Stick) Negative mg/dL (NEG) Urine Blood Moderate (NEG) Urine Nitrite Negative (NEG) Urine Bilirubin Negative (NEG) Urine Urobilinogen Dipstick 0.2 mg/dL (0.2 mg/dL) Urine Leukocyte Esterase Negative (NEG) Urine RBC Occ /HPF (0-2) Urine WBC Occ /HPF (0-4) Urine Squamous Epithelial Cells Occ /LPF Urine Bacteria 0 /HPF (0-FEW) Urine Opiates Screen Neg (NEG) Urine Methadone Screen Neg (NEG) Urine Barbiturates Neg (NEG) Urine Phencyclidine Screen Neg (NEG) Urine Amphetamine/Methamphetamine Neg (NEG) Urine Benzodiazepines Screen Neg (NEG) Urine Cocaine Screen Neg (NEG) Urine Cannabinoids Screen Neg (NEG) Urine Ethyl Alcohol Neg (NEG) Troponin I Quantitative < 0.017 ng/mL (0.000-0.055) Brief Hospital Course Mr. Menendez is a 66 old male, admit with chest pain, resp distress, US showed gallstones, likely cause of pain in AM, he felt well, requested DC home very limted Discharge Information Condition at Discharge: Improved Follow Up: Weeks Disposition/Orders: D/C to Home Patient Instructions Patient Instructions > 30 min Justicifation of Admission Dx: Justifications for Admission: Justification of Admission Dx: No (obs) LELA AQUINO MD Mar 06, 2021 10:31
[2021-03-06 11:00] VITALS: BP 103/58
--- NOTE | 2021-03-06 12:44 | PDOC2 ---
CONSULT Date of Consult Date of Consult DATE: 03/06/21 TIME: 12:43 Reason for Consult Reason for Consult: CHF Referring Physician Referring Physician: Dr. Ibarra Identification/Chief Complaint Chief Complaint Shortness of breath Source Source: Chart review, Patient History of Present Illness Reason for Visit: 66-year-old male who is a poor historian secondary to language barrier was apparently burning some garbage when he started noticing shortness of breath and chest tightness. He denied any palpitations or syncope per his family. Cardiology has been consulted for possible CHF. His symptoms apparently improved since admission. He has a sternal incision scar and upon further interrogation, patient's family stated that he had ' open heart surgery' possibly coronary artery bypass surgery based on description in 2013 in [place]. He does not have any regular cardiology follow-up. Past Medical History Cardiovascular: CAD, HTN, [place], Hyperlipidemia Pulmonary: COPD Heme/Onc: No pertinent hx Psych: Anxiety Infectious disease: No pertinent hx Endocrine: Diabetes Family History Family History: Hypertension Social History Quit ALCOHOL: rare Drugs: None Current Problem List Problem List Problems Medical Problems: (1) Chest pain Status: Acute (2) Cholelithiasis Status: Acute (3) Pleural effusion Status: Acute Current Medications Current Medications Current Medications Dexamethasone Sodium Phosphate (Decadron) 10 mg 1X ONCE IV Last administered on 03/05/21at 11:31; Start 03/05/21 at 10:45; Stop 03/05/21 at 10:46; Status DC Albuterol Sulfate (Ventolin Neb Soln) 2.5 mg 1X ONCE NEB Last administered on 03/05/21at 11:30; Start 03/05/21 at 10:45; Stop 03/05/21 at 10:46; Status DC Aspirin (Annetta Aspirin) 325 mg 1X ONCE PO Last administered on 03/05/21at 11:30; Start 03/05/21 at 11:00; Stop 03/05/21 at 11:01; Status DC Piperacillin Sod/ Tazobactam Sod 3.375 gm/Sodium Chloride 50 ml @ 100 mls/hr 1X ONCE IV Last administered on 03/05/21at 12:38; Start 03/05/21 at 12:00; Stop 03/05/21 at 12:29; Status DC Sodium Chloride 500 ml @ 500 mls/hr 1X ONCE IV Last administered on 03/05/21at 12:38; Start 03/05/21 at 12:00; Stop 03/05/21 at 12:59; Status DC Iohexol (Omnipaque 300 Mg/ml) 75 ml 1X ONCE IV Last administered on 03/05/21at 12:03; Start 03/05/21 at 12:00; Stop 03/05/21 at 12:01; Status DC Info (CONTRAST GIVEN -- Rx MONITORING) 1 each PRN DAILY PRN MC SEE COMMENTS; Start 03/05/21 at 12:00; Stop 03/07/21 at 11:59 Albuterol Sulfate (Ventolin Neb Soln) 2.5 mg 1X ONCE NEB Last administered on 03/05/21at 13:55; Start 03/05/21 at 13:45; Stop 03/05/21 at 13:46; Status DC Sodium Chloride (Normal Saline Flush) 3 ml QSHIFT PRN IV AFTER MEDS AND BLOOD DRAWS; Start 03/05/21 at 14:15 Ondansetron HCl (Zofran) 4 mg PRN Q4HRS PRN IV NAUSEA/VOMITING; Start 03/05/21 at 14:15 Acetaminophen (Tylenol) 650 mg PRN Q4HRS PRN PO TEMP OVER 100.4F OR MILD PAIN; Start 03/05/21 at 14:15 Sodium Monofluorophosphate (Fleet Adult) 133 ml PRN DAILY PRN SC CONSTIPATION; Start 03/05/21 at 14:15 Docusate Sodium (Colace) 100 mg PRN BID PRN PO HARD STOOLS; Start 03/05/21 at 14:15 Albuterol/ Ipratropium (Duoneb) 3 ml Q4HRS NEB Last administered on 03/06/21at 12:00; Start 03/05/21 at 16:00 Guaifenesin (Robitussin) 200 mg PRN Q4HRS PRN PO COUGH; Start 03/05/21 at 14:15 Enoxaparin Sodium (Lovenox 40mg Syringe) 40 mg Q24H SQ Last administered on 03/05/21at 21:29; Start 03/05/21 at 16:00 Piperacillin Sod/ Tazobactam Sod (Zosyn Per Pharmacy) 1 each PRN DAILY PRN MC SEE COMMENTS; Start 03/05/21 at 20:45 Piperacillin Sod/ Tazobactam Sod 3.375 gm/Sodium Chloride 50 ml @ 100 mls/hr Q6HRS IV Last administered on 03/06/21at 11:59; Start 03/05/21 at 21:00 Active Scripts Active Augmentin 875-125 Tablet (Amoxicillin/Potassium Clav) 1 Each Tablet 1 Tab PO BID 7 Days Allergies Allergies: Coded Allergies: No Known Drug Allergies (Unverified , 03/05/21) ROS Review of System Full review of systems cannot be obtained secondary to language barrier but he complained of dyspnea and chest pain that have currently resolved Physical Exam General: Alert, Oriented X3 HEENT: Atraumatic Lungs: Clear to auscultation Heart: Regular rate Abdomen: Soft Extremities: No edema Neuro: Normal speech Psych/Mental Status: Mood NL Vitals VITALS Vital Signs Date Time Temp Pulse Resp B/P (MAP) Pulse Ox O2 Delivery O2 Flow Rate FiO2 03/06/21 12:11 100 Nasal Cannula 2.0 03/06/21 11:00 97.8 86 18 103/58 (73) 97.8 Labs Labs Laboratory Tests Test 03/05/21 10:55 03/05/21 11:05 03/05/21 12:42 03/05/21 14:30 SARS-CoV-2 RNA (GLENN) Negative (Negative) SARS-CoV-2 Antigen (Rapid) Negative (NEGATIVE) White Blood Count 7.6 x10^3/uL (4.0-11.0) Red Blood Count 4.87 x10^6/uL (4.30-5.70) Hemoglobin 14.6 g/dL (13.0-17.5) Hematocrit 44.0 % (39.0-53.0) Mean Corpuscular Volume 90 fL (79-100) Mean Corpuscular Hemoglobin 30 pg (25-35) Mean Corpuscular Hemoglobin Concent 33 g/dL (31-37) Red Cell Distribution Width 16.6 % (11.5-14.5) Platelet Count 229 x10^3/uL (140-400) Neutrophils (%) (Auto) 64 % (31-73) Lymphocytes (%) (Auto) 23 % (24-48) Monocytes (%) (Auto) 8 % (0-9) Eosinophils (%) (Auto) 4 % (0-3) Basophils (%) (Auto) 1 % (0-3) Neutrophils # (Auto) 4.9 x10^3/uL (1.8-7.7) Lymphocytes # (Auto) 1.8 x10^3/uL (1.0-4.8) Monocytes # (Auto) 0.6 x10^3/uL (0.0-1.1) Eosinophils # (Auto) 0.3 x10^3/uL (0.0-0.7) Basophils # (Auto) 0.1 x10^3/uL (0.0-0.2) Sodium Level 143 mmol/L (136-145) Potassium Level 4.7 mmol/L (3.5-5.1) Chloride Level 107 mmol/L (98-107) Carbon Dioxide Level 28 mmol/L (21-32) Anion Gap 8 (6-14) Blood Urea Nitrogen 21 mg/dL (8-26) Creatinine 1.1 mg/dL (0.7-1.3) Estimated GFR (Cockcroft-Gault) 67.4 BUN/Creatinine Ratio 19 (6-20) Glucose Level 101 mg/dL (70-99) Calcium Level 9.2 mg/dL (8.5-10.1) Magnesium Level 2.0 mg/dL (1.8-2.4) Total Bilirubin 0.6 mg/dL (0.2-1.0) Aspartate Amino Transf (AST/SGOT) 17 U/L (15-37) Alanine Aminotransferase (ALT/SGPT) 36 U/L (16-63) Alkaline Phosphatase 79 U/L (46-116) Troponin I Quantitative < 0.017 ng/mL (0.000-0.055) < 0.017 ng/mL (0.000-0.055) CL-Zsm-F-Type Natriuretic Peptide 3519 pg/mL (0-124) Total Protein 7.6 g/dL (6.4-8.2) Albumin 3.7 g/dL (3.4-5.0) Albumin/Globulin Ratio 0.9 (1.0-1.7) Lipase 1551 U/L (73-393) Lactic Acid Level 1.6 mmol/L (0.4-2.0) Prothrombin Time 14.3 SEC (11.7-14.0) Prothromb Time International Ratio 1.1 (0.8-1.1) Activated Partial Thromboplast Time 32 SEC (24-38) Test 03/05/21 15:20 03/05/21 17:28 03/06/21 01:30 O2 Saturation 95 % (92-99) Arterial Blood pH 7.38 (7.35-7.45) Arterial Blood pCO2 at Patient Temp 39 mmHg (35-46) Arterial Blood pO2 at Patient Temp 81 mmHg (65-108) Arterial Blood HCO3 22 mmol/L (21-28) Arterial Blood Base Excess -2 mmol/L (-3-3) Oxyhemoglobin 94.7 % Methemoglobin 0.6 % (0.0-1.9) Carbon Monoxide, Quantitative 0.0 % (0.0-1.9) FiO2 Urine Collection Type Unknown Urine Color Yellow Urine Clarity Clear Urine pH 5.0 (<5.0-8.0) Urine Specific [place] >=1.030 (1.000-1.030) Urine Protein 100 mg/dL (NEG-TRACE) Urine Glucose (UA) >=1000 mg/dL (NEG) Urine Ketones (Stick) Negative mg/dL (NEG) Urine Blood Moderate (NEG) Urine Nitrite Negative (NEG) Urine Bilirubin Negative (NEG) Urine Urobilinogen Dipstick 0.2 mg/dL (0.2 mg/dL) Urine Leukocyte Esterase Negative (NEG) Urine RBC Occ /HPF (0-2) Urine WBC Occ /HPF (0-4) Urine Squamous Epithelial Cells Occ /LPF Urine Bacteria 0 /HPF (0-FEW) Urine Opiates Screen Neg (NEG) Urine Methadone Screen Neg (NEG) Urine Barbiturates Neg (NEG) Urine Phencyclidine Screen Neg (NEG) Urine Amphetamine/Methamphetamine Neg (NEG) Urine Benzodiazepines Screen Neg (NEG) Urine Cocaine Screen Neg (NEG) Urine Cannabinoids Screen Neg (NEG) Urine Ethyl Alcohol Neg (NEG) Troponin I Quantitative < 0.017 ng/mL (0.000-0.055) Laboratory Tests Test 03/05/21 14:30 03/05/21 15:20 03/05/21 17:28 03/06/21 01:30 Prothrombin Time 14.3 SEC (11.7-14.0) Prothromb Time International Ratio 1.1 (0.8-1.1) Activated Partial Thromboplast Time 32 SEC (24-38) Troponin I Quantitative < 0.017 ng/mL (0.000-0.055) < 0.017 ng/mL (0.000-0.055) O2 Saturation 95 % (92-99) Arterial Blood pH 7.38 (7.35-7.45) Arterial Blood pCO2 at Patient Temp 39 mmHg (35-46) Arterial Blood pO2 at Patient Temp 81 mmHg (65-108) Arterial Blood HCO3 22 mmol/L (21-28) Arterial Blood Base Excess -2 mmol/L (-3-3) Oxyhemoglobin 94.7 % Methemoglobin 0.6 % (0.0-1.9) Carbon Monoxide, Quantitative 0.0 % (0.0-1.9) FiO2 Urine Collection Type Unknown Urine Color Yellow Urine Clarity Clear Urine pH 5.0 (<5.0-8.0) Urine Specific [place] >=1.030 (1.000-1.030) Urine Protein 100 mg/dL (NEG-TRACE) Urine Glucose (UA) >=1000 mg/dL (NEG) Urine Ketones (Stick) Negative mg/dL (NEG) Urine Blood Moderate (NEG) Urine Nitrite Negative (NEG) Urine Bilirubin Negative (NEG) Urine Urobilinogen Dipstick 0.2 mg/dL (0.2 mg/dL) Urine Leukocyte Esterase Negative (NEG) Urine RBC Occ /HPF (0-2) Urine WBC Occ /HPF (0-4) Urine Squamous Epithelial Cells Occ /LPF Urine Bacteria 0 /HPF (0-FEW) Urine Opiates Screen Neg (NEG) Urine Methadone Screen Neg (NEG) Urine Barbiturates Neg (NEG) Urine Phencyclidine Screen Neg (NEG) Urine Amphetamine/Methamphetamine Neg (NEG) Urine Benzodiazepines Screen Neg (NEG) Urine Cocaine Screen Neg (NEG) Urine Cannabinoids Screen Neg (NEG) Urine Ethyl Alcohol Neg (NEG) Assessment/Plan Assessment/Plan 1. Acute respiratory failure most probably secondary to acute on chronic diastolic heart failure. Chest x-ray showed diffuse interstitial infiltrates and BNP level elevated. We will give one dose of intravenous Lasix and start p.o. Lasix. Consider 2D echo as an outpatient. 2. Coronary artery disease s/p coronary artery bypass surgery: Clinically stable and chest pain-free. Cardiac enzymes negative. Consider ischemic evaluation as an outpatient. 3. Hypertension: Controlled Thank you for your consultation JESSICA BORGES MD Mar 06, 2021 12:44
[2021-03-06] MEDS ORDERED: FUROSEMIDE 40 MG/4 ML VIAL. IVP ONE (13:30)
--- NOTE | 2021-03-06 13:31 | NUR ---
Discharge Note: DUANE JONES[address] [place] [address] Discharge instructions and discharge home medications reviewed with Family Member and a copy given. All questions have been answered and understanding verbalized. The following instructions and handouts were given: Pneumonia, Cholethitis, and chest pain Discontinued lines and drains:IV's and skin is intact. Patient discharged to HOME with prescription for Augmentin.
[2021-03-06] MEDS ORDERED: ASPIRIN ENTERIC COATED 81 MG TABLET.DR. PO SCH (14:00)
[2021-03-07] MEDS ORDERED: FUROSEMIDE 20 MG TABLET PO SCH (09:00)
== END 2021-03-06 13:15 | disposition home or self-care (01) | DRG 444 ==
LOC: ER 09:57 → ED HOLD 13:35 → 6 SOUTH 18:02
PROVIDERS: ADMIT Family Medicine; ATTEND Family Medicine
DX: K80.20 Calculus of gallbladder without cholecystitis without obstruction (principal); J96.01 Acute respiratory failure with hypoxia; I50.32 Chronic diastolic (congestive) heart failure; I11.0 Hypertensive heart disease with heart failure; E11.9 Type 2 diabetes mellitus without complications; E78.00 Pure hypercholesterolemia, unspecified; E78.5 Hyperlipidemia, unspecified; I25.10 Atherosclerotic heart disease of native coronary artery without angina pectoris; J44.9 Chronic obstructive pulmonary disease, unspecified; N40.0 Benign prostatic hyperplasia without lower urinary tract symptoms; Z82.49 Family history of ischemic heart disease and other diseases of the circulatory system; Z95.1 Presence of aortocoronary bypass graft; F41.9 Anxiety disorder, unspecified; Z20.822 Contact with and (suspected) exposure to COVID-19
CPT/HCPCS: 36415; 36600; 71045; 74177; 76705; 80053; 80307; 81001; 82805; 83605; 83690; 83735; 83880; 84484; 85025; 85610; 85730; 87040; 87426; 93005; 94640; 96365; 96375; J1100; J1650; J2543; J7040; Q9967; U0003; U0005; 97116-GP; 99285-25; G0378; J7613